=== PATIENT | female | born 1995 | race Caucasian/White ===

== ENCOUNTER 2019-03-07 23:30 | Emergency (ER) | payer OTHER ==
--- NOTE | 2019-03-08 01:05 | ED ---
GI/ HPI - HPI Summary HPI Summary: This patient is a 23 year old F presenting to [facility] accompanied by friends with a chief complaint of pain and bulge at anus since 0800 on 03/07/19. Pt is 33 weeks , pt has previously been . Per triage, the patient rates the pain 6/10 in severity. - History of Current Complaint Chief Complaint: EDRectalPain Time Seen by Provider: 03/08/19 00:56 Stated Complaint: HEMORRHOID PER PT Hx Obtained From: Patient Onset/Duration: Started Hours Ago, Still Present Timing: Constant Severity: Moderate Current Severity: Moderate Pain Intensity: 6 Location of Pain: Anal Associated Signs and Symptoms: Positive: External Hemorrhoid Aggravating Factor(s): Nothing Alleviating Factor(s): Nothing - Allergy/Home Medications Allergies/Adverse Reactions: Allergies Allergy/AdvReac Type Severity Reaction Status Date / Time No Known Allergies Allergy Verified 03/07/19 23:52 PMH/Surg Hx/FS Hx/Imm Hx Sensory History: Denies: Hx Legally Blind EENT History: Denies: Hx Deafness - Surgical History Surgery Procedure, Year, and Place: Infectious Disease History: No Infectious Disease History: Denies: Traveled Outside the [place] in Last 30 Days - Family History Known Family History: Negative: Blood Disorder - Social History Lives: With Family Alcohol Use: Occasionally Hx Substance Use: No Substance Use Type: Reports: None Hx Tobacco Use: Yes Smoking Status (MU): Former Smoker Review of Systems Negative: Fever Positive: Other - hemorrhoid All Other Systems Reviewed And Are Negative: Yes Physical Exam - Summary Physical Exam Summary: Constitutional: Well-developed, Well-nourished, Alert. (-) Distressed Skin: Warm, Dry HENT: Normocephalic; Atraumatic Eyes: Conjunctiva normal Neck: Musculoskeletal ROM normal neck. (-) JVD, (-) Stridor, (-) Tracheal deviation Cardio: Rhythm regular, rate normal, Heart sounds normal; Intact distal pulses; The pedal pulses are 2+ and symmetric. Radial pulses are 2+ and symmetric. Pulmonary/Chest wall: Effort normal. (-) Respiratory distress, (-) Wheezes, (-) Rales Abd: Soft, (-) tenderness, (-) Distension, (-) Guarding, (-) Rebound Musculoskeletal: (-) Edema; Neuro: Alert, Oriented x3 Psych: Mood and affect Normal : Very small external hemorrhoid, no thrombosis, appropriately tender Female [employer] was present for the exam. Triage Information Reviewed: Yes Vital Signs On Initial Exam: Initial Vitals Temp Pulse Resp BP Pulse Ox 98.8 F 90 16 115/74 98 03/07/19 23:50 03/07/19 23:50 03/07/19 23:50 03/07/19 23:50 03/07/19 23:50 Vital Signs Reviewed: Yes Diagnostics - Vital Signs Vital Signs Temp Pulse Resp BP Pulse Ox 03/07/19 23:50 98.8 F 90 16 115/74 98 - Laboratory Lab Statement: Any lab studies that have been ordered have been reviewed, and results considered in the medical decision making process. GIGU Course/Dx - Course Course Of Treatment: This patient is a 23 year old F presenting to [facility] accompanied by friends with a chief complaint of pain and bulge at anus since 0800 on 03/07/19. Pt is 33 weeks , pt has previously been . Per triage, the patient rates the pain 6/10 in severity. Physical Exam Findings are nml, except for very small external hemorrhoid, no thrombosis, appropriately tender. Patient will be discharged. The patient is agreeable with this plan. - Diagnoses Provider Diagnoses: Hemorrhoids Discharge - Sign-Out/Discharge Documenting (check all that apply): Patient Departure - Discharge Patient Received Moderate/Deep Sedation with Procedure: No - Discharge Plan Condition: Good Disposition: HOME Patient Education Materials: Hemorrhoids (ED), High Fiber Diet (ED) Referrals: Hector Hendrix MD [Primary Care Provider] - - Billing Disposition and Condition Condition: GOOD Disposition: Home - Attestation Statements Document Initiated by Sheltonibe: Yes Documenting Scribe: Ledy Juares Provider For Whom Azeem is Documenting (Include Credential): Dr. Bogdan Pastor MD Scribe Attestation: Ledy Delgado scribed for Dr. Bogdan Pastor MD on 03/08/19 at 0605. Scribe Documentation Reviewed: Yes Provider Attestation: The documentation as recorded by the Ledy saleem accurately reflects the service I personally performed and the decisions made by me, Dr. Bogdan Pastor MD Status of Scribe Document: Viewed
[2019-03-08 01:11] VITALS: BP 116/68
== END 2019-03-08 01:10 | disposition home or self-care (01) ==
LOC: ED 23:30
DX: O22.43 Hemorrhoids in pregnancy, third trimester (principal); Z3A.33 33 weeks gestation of pregnancy; Z87.891 Personal history of nicotine dependence
CPT/HCPCS: 99282

== ENCOUNTER 2019-04-21 07:45 | Inpatient (IN) | payer OTHER ==
[2019-04-21] MEDS ORDERED: Lactated Ringers 1000 ML Bag* 1,000 ML IV ONE ×2 (08:10→10:39)
[2019-04-21] MEDS ORDERED: Buffered Lidocaine 1% SYRIN* 1 ML/SYRINGE INTRADERM ONE (08:10)
--- NOTE | 2019-04-21 08:20 | HP ---
General Information - Reason for Visit contractions - General Information Maternal Age: 23 Grav: 3 Para: 1 SAB: 0 IEA: 1 Estimated Due Date: 05/03/19 Determined By: LMP Maternal Blood Type and Rh: A Positive - Results this Serology/RPR Result: Non-Reactive Rubella Result: Immune HBsAg Result: Negative HIV Result: Negative GBS Culture Result: Negative Past Medical History Delivery History: See Records Pertinent Past Medical History: See Records Pertinent Past Surgical History: See Records Pertinent Family History: See Records - Antepartal Records Antepartal Records: Reviewed, Complicated by: - desires Review of Systems Constitutional: Uncomfortable CV Complaint: No Respiratory: Shortness of Breath: No Gastrointestinal: No Nausea/Vomiting Genitourinary: No Dysuria, No Bleeding, No Leaking Fluid Musculoskeletal: No Complaint Neurological: No Headache Movement: Normal Exam Allergies/Adverse Reactions: Allergies Latex, Natural Rubber Allergy (Verified 04/20/19 09:29) Itching T : 97.4 BP : 115/73 P : 110 RR : 22 - Measurements Height: 5 ft 2 in Weight: 145 lb Body Mass Index (BMI): 26.5 Pre- Weight: 115 lb - Exam Breast: Breast Exam Deferred CVA: No CVA Tenderness Extremities: No Edema Heart: Normal Rhythm/Heart Sounds HEENT: No Significant Findings Lungs: Clear Bilaterally Rectal: Rectal Exam Deferred Reflexes: DTR 2+ Thyroid: No Thyromegaly - Abdominal Exam Abdomen Exam: Non-Tender - Ultrasound/Biophysical Profile Ultrasound Status: Not Done Targeted Exam Findings Cervical Exam: 3cm Effacement: Complete Station: +1 Presenting Part: Vertex Membrane Status: Intact EFM Findings - External Monitor Findings Baseline Heart Rate: 140 External Monitor Findings: Accelerations Present, No Pattern of Variable or Late Decelerations, Variability Moderate Contractions: Regular - Q 2-5 Assessment/Plan - Obstetrical Risk Factors Obstetrical Risk Factors: Previous C/Section in Labor - Plan Plan: Admit - Anticipate Vaginal Delivery - Pt 23 yo G 2P1 at 38 3/7 weeks with active labor desires trial of labor after a section. Pt accepts risk associated with TOLAC to include but not lmited to uterine rupture/ need for surgery/ poor outcome including risk of and maternal and cerebral palsy for baby. consent form reviewed and signed.
[2019-04-21] MEDS ORDERED: Lidocaine 1% MPF ** 5 ML VIAL ONE ×2 (08:56→12:31)
[2019-04-21] MEDS ORDERED: Lactated Ringers 1000 ML Bag* 1,000 ML IV SCH ×3 (09:00→16:00)
[2019-04-21 09:07] LABS: ABS Basophils 0.1 10^3/ul (0-0.2); ABS Lymphocytes 2.2 10^3/ul (1.0-4.8); ABS Monocytes 0.7 10^3/ul (0-0.8); ABS Neutrophils 15.1 10^3/ul (1.5-7.7); Eosinophil % 0.1 %; Hematocrit 40 % (35-47); Hemoglobin 13.7 g/dL (12.0-16.0); Mean Corpuscular HGB Conc 35 g/dL (31-36); Mean Corpuscular Hemoglobin 32 pg (27-31); Mean Corpuscular Volume 91 fL (80-97); Mean Platelet Volume 7.2 fL (7.4-10.4); Platelet Count 224 10^3/uL (150-450); Red Blood Count 4.35 10^6 /uL (3.70-4.87); Red Cell Distribution Width 14 % (10-15); White Blood Count 18.1 10^3/uL (3.5-10.8)
[2019-04-21] MEDS ORDERED: OBEPIDURAL* 250 ML EPIDURAL ONE (09:27)
[2019-04-21 10:15] LABS: Urine Benzodiazepine Screen None Detected (None Detect); Urine Opiates Screen None Detected (None Detect)
[2019-04-21] MEDS ORDERED: Phenylephrine 40 MCG/ML SYRINGE IV PUSH PRN (10:39)
[2019-04-21] MEDS ORDERED: Sodium Citrate/Citric Acid* 15 ML UDC PO PRN (10:39)
[2019-04-21] MEDS ORDERED: Famotidine TAB* 20 MG PO PRN (10:39)
[2019-04-21] MEDS ORDERED: OBEPIDURAL* 250 ML EPIDURAL SCH (11:00)
[2019-04-21] MEDS ORDERED: Oxytocin in LR* 20 UNITS/1,000 ML BAG IVPB SCH ×2 (15:00→16:00)
[2019-04-21] MEDS ORDERED: Acetaminophen TAB* 325 MG PO PRN (15:55)
[2019-04-21] MEDS ORDERED: Glycerin ADULT SUPP PR PRN (15:55)
[2019-04-21] MEDS ORDERED: Witch Hazel PAD* JAR TOPICAL PRN (15:55)
[2019-04-21] MEDS ORDERED: Dibucaine 1% 28.35 GM TUBE PR PRN (15:55)
--- NOTE | 2019-04-21 16:03 | PROCNOTE ---
[facility] OB: Delivery Note - Delivery A Date of : 04/21/19 Time of : 15:45 Sex: Female Score 1 Minute: 7 Score 5 Minutes: 8 Gestational Age in Weeks and Days at Delivery: 38 Weeks and 2 Days Delivery Method: Spontaneous Vaginal Labor: Spontaneous Did Patient attempt ?: Yes, Successful Amniotic Fluid: Clear Estimated Blood Loss: 200 Anesthesia/Analgesia: CEI for Labor Delivered By: Avelina Brennan - Nursery Level of Nursery: Regular/Bedside - Perineum Perineal Injury: Abrasion Only - Not Repaired Perineal Repair: None - Events Delivery Events of Note: Pitocin During Labor, Supplemental O2 to Mother
[2019-04-21] MEDS: Docusate CAP* 100 MG PO SCH (21:39)
[2019-04-22] MEDS: Ibuprofen TAB* 600 MG PO PRN ×2 (04:45→20:34)
[2019-04-22 05:39] LABS: ABS Basophils 0.1 10^3/ul (0-0.2); ABS Eosinophils 0.1 10^3/ul (0-0.6); ABS Lymphocytes 3.2 10^3/ul (1.0-4.8); ABS Monocytes 0.9 10^3/ul (0-0.8); ABS Neutrophils 8.9 10^3/ul (1.5-7.7); Eosinophil % 1.1 %; Hematocrit 35 % (35-47); Lymphocyte % 24.5 %; Mean Corpuscular HGB Conc 34 g/dL (31-36); Mean Corpuscular Hemoglobin 31 pg (27-31); Mean Corpuscular Volume 91 fL (80-97); Mean Platelet Volume 7.1 fL (7.4-10.4); Platelet Count 203 10^3/uL (150-450); Red Blood Count 3.83 10^6 /uL (3.70-4.87); Red Cell Distribution Width 13 % (10-15); White Blood Count 13.2 10^3/uL (3.5-10.8)
[2019-04-22] MEDS ORDERED: Ferrous Gluconate TAB* 324 MG TAB PO SCH (09:00)
[2019-04-22] MEDS: Simethicone TAB* 80 MG TAB.CHEW PO SCH ×3 (10:07→18:06)
[2019-04-22] MEDS: Docusate CAP* 100 MG PO SCH ×2 (10:07→17:34)
[2019-04-22 20:02] VITALS: BP 106/56
[2019-04-23] MEDS: Docusate CAP* 100 MG PO SCH ×2 (04:00→07:50)
== END 2019-04-23 11:00 | disposition home or self-care (01) | DRG 560 ==
LOC: MCHOBOUT 07:45 → MCHOB 08:11
PROVIDERS: ADMIT Obstetrics & Gynecology; ATTEND Obstetrics & Gynecology
PROC: 10E0XZZ Delivery of Products of Conception, External Approach (ICD-10-PCS; principal; 2019-04-21)
DX: O60.23X0 Term delivery with preterm labor, third trimester, not applicable or unspecified (principal); Z37.0 Single live birth; O34.211 Maternal care for low transverse scar from previous cesarean delivery; O77.0 Labor and delivery complicated by meconium in amniotic fluid; O70.0 First degree perineal laceration during delivery; Z3A.38 38 weeks gestation of pregnancy
CPT/HCPCS: 36415; 80307; 85025; 86850; 86900; 86901; A9270-GY

== ENCOUNTER 2019-07-31 07:08 | Day surgery (SDC) | payer OTHER ==
[~2019-07-31 07:08] MED LIST: Buffered Lidocaine 1% SYRIN* 1 ML/SYRINGE INTRADERM ONE; Lactated Ringers 1000 ML Bag* 1,000 ML IV SCH; ceFOXitin 2 GM IVPREMIX* 2 GM/50 ML BAG IVPB ONE
[2019-07-31] MEDS ORDERED: ceFOXitin 2 GM IVPREMIX* 2 GM/50 ML BAG ONE (07:50)
[2019-07-31] MEDS ORDERED: Buffered Lidocaine 1% SYRIN* 1 ML/SYRINGE INTRADERM ONE (07:50)
[2019-07-31] MEDS ORDERED: Ondansetron INJ* 2 MG/ML VIAL ONE ×3 (09:09→11:07)
[2019-07-31] MEDS ORDERED: Dexamethasone IV* 4 MG/ML 1 ML (4 MG) ONE (09:09)
[2019-07-31] MEDS ORDERED: Propofol* 10 MG/ML 20 ML BTL ONE (09:09)
[2019-07-31] MEDS ORDERED: Rocuronium* 10 MG/ML VIAL ONE (09:10)
[2019-07-31] MEDS ORDERED: fentaNYL* 50 MCG/ML 2 ML VIAL (100 MCG VIAL) ONE ×2 (09:10→11:04)
[2019-07-31] MEDS ORDERED: Midazolam* 1 MG/ML 5 ML VIAL (5 MG) ONE (09:10)
[2019-07-31] MEDS ORDERED: Lidocaine 2% PF * 5 ML VIAL ONE (09:33)
[2019-07-31] MEDS ORDERED: Naloxone* 0.4 MG/ML 1 ML VIAL IV PRN (09:55)
[2019-07-31] MEDS ORDERED: Scopolamine 1.5 mg* PATCH TRANSDERM PRN (09:55)
[2019-07-31] MEDS ORDERED: HYDROmorphone INJ1* 1 MG/ML SYRINGE IV PRN (09:55)
[2019-07-31] MEDS ORDERED: DiMENhydriNATE IV* 50 MG/ML VIAL IV PUSH PRN (09:55)
[2019-07-31] MEDS ORDERED: Ondansetron INJ* 2 MG/ML VIAL IV PRN (09:55)
[2019-07-31] MEDS ORDERED: Ketorolac INJ* 30 MG/ML 1 ML VIAL ONE (10:04)
[2019-07-31] MEDS ORDERED: Sugammadex * 200 MG/2 ML VIAL IV PUSH ONE (10:23)
[2019-07-31] MEDS: fentaNYL* 50 MCG/ML 2 ML VIAL (100 MCG VIAL) IV PRN ×4 (11:06→11:19)
[2019-07-31] MEDS ORDERED: oxyCODONE/Acetamin 5/325 MG* TAB ONE (11:19)
[2019-07-31 13:04] VITALS: BP 131/87
--- NOTE | 2019-07-31 20:24 | OP ---
DATE OF OPERATION: 07/31/19 - [facility] DATE OF : 89 SURGEON: Jose Ramon Fields MD ANESTHESIA: General anesthetic with endotracheal intubation. PRE-OP DIAGNOSIS: Multiparity, patient desires permanent surgical sterilization. POST-OP DIAGNOSIS: Multiparity, patient desires permanent surgical sterilization. OPERATIVE PROCEDURE: Bilateral laparoscopic tubal ligation with Filshie clips. ESTIMATED BLOOD LOSS: None. SPECIMENS: There were no specimens sent to Pathology. FLUIDS: She received 1 L of IV crystalloid fluid. URINE OUTPUT: 700 cc of clear urine. FINDINGS: Laparoscopically, the patient was noted to have a normal uterus, normal adnexa, normal tubes and ovaries bilaterally with normal bowel and bladder and there were no complications. DESCRIPTION OF PROCEDURE: The patient was taken to the operating room where she was identified. She was placed on the operating table, where a general anesthetic with endotracheal intubation was obtained without difficulty. She was then placed in the dorsal lithotomy position, prepped and draped in a normal sterile fashion. Attention was then brought onto the patient's perineum where the bladder was catheterized with a Deutsch catheter and drained of clear urine. A side view speculum was inserted into the patient's vagina. The cervix was identified, grasped with a single-tooth tenaculum, and the uterus was then sounded to 7 cm in anteverted position. Through the cervix, a ClearView uterine manipulator was introduced. The balloon in the manipulator was insufflated with 3 cc of normal saline. The single-toothed tenaculum was removed as well as the side view speculum. Attention was then brought onto the patient's abdomen where a 1 cm infraumbilical skin incision was made with a knife and carried through to the underlying layer of fascia. The fascia was grasped with Robert clamps and brought up to the incision and incised with a knife medially. Entry into the patient's abdomen through the peritoneum was confirmed using a Liset clamp. The Robert clamps were then replaced with 0 Polysorb suture. Through this incision, a 5 mm blunt trocar was introduced. The balloon in the trocar was insufflated with air. The patient's abdomen was then insufflated with CO2 gas and a 5 mm scope was introduced through the umbilical trocar and a survey of the patient's pelvic anatomy revealed findings as noted above. A second trocar was then introduced under direct visualization 4 cm above the symphysis pubis in the midline without complications. Through this trocar, a Filshie clip applicator was introduced and a bilateral tubal ligation by application of Filshie clips on the fallopian tubes was performed without any complications. The Filshie clip applicator was removed from the patient's abdomen as well as the trocar. The umbilical trocar was also removed and the air was removed from the patient's abdomen. The umbilical fascial incision was closed with 0 Polysorb suture in a running fashion and suprapubic and umbilical skin incisions were then closed with 4-0 Monocryl subcuticular stitches in an usual fashion. Deutsch catheter and the uterine manipulators were also removed. The patient tolerated the procedure well. Sponge, lap, and needle counts were correct x2. She was then transferred to recovery room area in stable condition. [id number]/CPS #: [id number] MTDD
[2019-08-03] MEDS ORDERED: Scopolamine PATCH Remove* 1 NOTE MISC PATCH OFF ONE (09:56)
== END 2019-07-31 13:57 | disposition home or self-care (01) ==
LOC: OR 07:08
PROVIDERS: ATTEND Obstetrics & Gynecology
DX: Z30.2 Encounter for sterilization (principal); F17.210 Nicotine dependence, cigarettes, uncomplicated; F32.9 Major depressive disorder, single episode, unspecified
CPT/HCPCS: A9270-GY; C1776; J0694; J1100; J1885; J2250; J2405; J2704; J3010